=== PATIENT | female | born 2000 | race Caucasian/White ===

== ENCOUNTER 2018-05-19 22:11 | Emergency (ER) | payer OTHER ==
[~2018-05-19] VITALS: Ht 154.9 cm; Wt 51.7 kg
[2018-05-19 22:17] VITALS: BP 114/66
[2018-05-20] MEDS ORDERED: KETOROLAC 30 MG/ML VIAL IM ONE (00:05)
[2018-05-20 00:59] VITALS: BP 119/82
== END 2018-05-20 00:59 | disposition home or self-care (01) ==
LOC: MED 22:11
DX: G44.209 Tension-type headache, unspecified, not intractable (principal); R11.2 Nausea with vomiting, unspecified; R42 Dizziness and giddiness
CPT/HCPCS: 81002; 81025; 96372; 99283; J1885

== ENCOUNTER 2020-06-27 20:12 | Emergency (ER) | payer OTHER, SELFPAY ==
[~2020-06-27] VITALS: Ht 154.9 cm; Wt 59.0 kg
[2020-06-27 20:45] VITALS: BP 125/89
--- NOTE | 2020-06-27 20:47 | NUR ---
PT IN TENT. COVID PRECAUTIONS IN PLACE.
--- NOTE | 2020-06-27 20:56 | NUR ---
COVID SWAB OBTAINED AND WALKED OVER TO LAB.
--- NOTE | 2020-06-27 21:23 | NUR ---
NO NURSING INTERVENTION DONE.
--- NOTE | 2020-06-27 21:24 | NUR ---
Patient discharged with v/s stable. Written and verbal after care instructions given and explained. Patient alert, oriented and verbalized understanding of instructions. Ambulatory with steady gait. All questions addressed prior to discharge. ID band removed. Patient advised to follow up with PMD. Rx of ZOFRAN, PREDNISONE, AZITHROMYCIN, COUGH DROP given. Patient educated on indication of medication including possible reaction and side effects. Opportunity to ask questions provided and answered.
[2020-06-27 21:28] VITALS: BP 125/89
== END 2020-06-27 20:58 | disposition home or self-care (01) ==
LOC: MED 20:12
DX: U07.1 COVID-19 (principal)
CPT/HCPCS: 99283; U0003